=== PATIENT | female | born 1985 | race Caucasian/White ===

== ENCOUNTER 2017-07-04 05:25 | Day surgery (SDC) | payer OTHER ==
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
[2017-07-04] MEDS ORDERED: DOXYCYCLINE HYCLATE 100 MG CAP/TAB PO ONE ×2 (06:45→08:39)
[2017-07-04] MEDS ORDERED: fentaNYL 100 MCG/2 ML INJ ONE (07:10)
[2017-07-04] MEDS ORDERED: PROPOFOL/EMULSION 500 MG/50 ML BOTTLE IV ONE (07:10)
[2017-07-04] MEDS ORDERED: LIDOCAINE 2% 5 ML SDV ONE (07:11)
[2017-07-04] MEDS ORDERED: OXYTOCIN 100 UNITS/10 ML VIAL ONE (07:11)
[2017-07-04] MEDS ORDERED: DEXAMETHASONE 4 MG/ML VIAL ONE ×2 (07:11)
[2017-07-04] MEDS ORDERED: ONDANSETRON 4 MG/2 ML VIAL ONE (07:11)
[2017-07-04] MEDS ORDERED: MIDAZOLAM 2 MG/2 ML VIAL ONE (07:20)
--- NOTE | 2017-07-04 07:29 | PDANEPAE ---
ANE History of Present Illness Missed Ab. ANE Past Medical History - Cardiovascular History Hx Hypertension: No Hx Arrhythmias: No Hx Chest Pain: No Hx Coronary Artery / Peripheral Vascular Disease: No Hx CHF / Valvular Disease: No Hx Palpitations: No - Pulmonary History Hx COPD: No Hx Asthma/Reactive Airway Disease: No Hx Recent Upper Respiratory Infection: No Hx Oxygen in Use at Home: No Hx Sleep Apnea: No - Endocrine History Hx Diabetes: No - Chronic Pain History Chronic Pain: No ANE Review of Systems Review of Systems: Prior general and epidural anesthesia. ANE Patient History - Allergies Allergies/Adverse Reactions: menthol Allergy (Verified 05/30/16 17:21) - Home Medications Home Medications: Docusate Sodium [Colace 100 MG (*)] 1 cap PO PRN PRN 05/31/16 [Last Taken Unknown] Vit27&Calcium/Iron/FA [] 1 tab PO DAILY 05/31/16 [Last Taken Unknown] - Smoking Hx Smoking Status: Never smoked Marijuana use: No - Alcohol Use Alcohol Use: Rarely - Family Anes Hx Family Anes Hx: neg - N/A ANE Labs/Vital Signs - Vital Signs Height: 177.8 cm Weight: 99.79 kg ANE Physical Exam - Airway Neck exam: FROM Mallampati Score: Class 1 Mouth exam: normal dental/mouth exam - Pulmonary Pulmonary: no respiratory distress - Cardiovascular Cardiovascular: regular rate and rhythym - ASA Status ASA Status: I ANE Anesthesia Plan Anesthesia Plan: GA with mask
[2017-07-04] MEDS ORDERED: ceFAZolin 1 GM VIAL ONE ×2 (07:56)
[2017-07-04] MEDS ORDERED: GLYCOPYRROLATE 0.2 MG/1 ML VIAL ONE (08:07)
[2017-07-04] MEDS ORDERED: ONDANSETRON 4 MG/2 ML VIAL IVP PRN (08:46)
[2017-07-04] MEDS ORDERED: NALOXONE HCL 0.4 MG/ML INJ IVP PRN (08:46)
[2017-07-04] MEDS ORDERED: METOCLOPRAMIDE 10 MG/2 ML VIAL IVP PRN (08:46)
[2017-07-04] MEDS ORDERED: HYDROCODONE/APAP 5/325 TAB PO PRN (08:46)
[2017-07-04] MEDS ORDERED: ALBUTEROL 3 ML DEYVIAL IH PRN (08:46)
[2017-07-04] MEDS ORDERED: fentaNYL 100 MCG/2 ML INJ IVP PRN (08:46)
--- NOTE | 2017-07-04 08:46 | POSTOPPROG ---
Post Op Note Date of Operation: 07/04/17 Surgeon: Derrell King Straw Hat Brim Raiser Operator: OR Staff Anesthesiologist: David Tolbert MD Anesthesia: Other (Specify) (Oral Mask) Pre-op Diagnosis: Missed Post-op Diagnosis: Missed Indication: 31 yo with 8 week MAB Procedure: Suction D&C Findings: Products of conception Inf/Abcess present in the surg proc area at time of surgery?: No Depth: Organ Space EBL: 100-500 Total fluids administered: 1800 mL Complications: None
--- NOTE | 2017-07-04 08:46 | POSTANESTH ---
Post Anesthetic Evaluation Cardiovascular Status: Normal, Stable, Similar to Pre-Op Cond Respiratory Status: Normal, Stable, Similar to Pre-op Cond. Level of Consciousness/Mental Status: Can Participate in Eval, Alert and Oriented Pain Control: Adequate, Prn Tx Ordered Nausea/Vomiting Control: Adequate, Prn Tx Ordered Complications Possibly Related to Anesthesia: None Noted
--- NOTE | 2017-07-04 09:04 | SUROPNOTE ---
[facility] Operative Report - Surgery OPERATIVE REPORT DATE OF OPERATION: 07/04/2017 SURGEON: Maurisio King MD SAGGER SOAK: OR Staff ANESTHESIA: General Mask ANESTHESIOLOGIST: David Tolbert MD PREOPERATIVE DIAGNOSES: 1. 31 yo @ 11 weeks by LMP 2. Missed measuring 8 weeks gestational age on 07/01/17 US POSTOPERATIVE DIAGNOSIS: Same as above PROCEDURE PERFORMED: Suction dilation and curettage FINDINGS: 1. Anteverted 8-week sized uterus. 2. Moderate amounts of products of conception. SPECIMENS: Products of conception were collected and prepared to be sent for chromosome analysis (via the "Zkatter). EBL: 200 mL INDICATIONS: 31 yo @ 11 weeks by LMP with missed (measured 8.4 weeks) diagnosed earlier this week at [facility] consult sonogram. After counseling regarding management options (expectant management, Cytotec, and surgery), Sendy decided to proceed with suction dilation and curettage. DESCRIPTION OF PROCEDURE: The patient was taken to the operating room after she was given 100 mg of PO doxycycline. A time-out was performed. General mask anesthesia was induced and found to be adequate. Patient was placed in dorsal lithotomy position with Dada stirrups. A bimanual exam under anesthesia revealed 8-week sized anteverted uterus. Vagina and perineum were prepped and patient was draped in normal sterile fashion. Red rubber catheter was used to empty 25 mL of clear urine from bladder. A sterile weighted speculum was placed in patient's vagina and the cervix was noted to be slightly dilated with no blood or products of conception present at the os. A single tooth tenaculum was applied to the anterior lip of the cervix and used for uterine traction. The uterus was gently sounded (with dilator) to 9 cm. Dilators were used in increasing size to dilate cervix. A 10F suction curette was advance gently to the uterine fundus. The suction device was then activated to clear the uterus of the retained products of conception. A sharp curettage was then performed until a gritty texture was noted (circumferentially around endometrial cavity). The suction curette was reintroduced to clear the uterus of all remaining products of conception. A realtime bedside transabdominal sonogram was performed by myself and confirmed no obvious retained products of conception or blood clots. There was minimal bleeding noted and the tenaculum was removed with good hemostasis at tenaculum teeth sites. The patient tolerated the procedure well. The patient was taken to PACU in stable condition. Sponge, lap, and instrument counts were correct x 2.
[2017-07-04] MEDS ORDERED: METHYLERGONOVINE MAL 0.2 MG TAB PO SCH (09:15)
[2017-07-04] MEDS ORDERED: metroNIDAZOLE 500 MG TAB PO SCH (21:00)
== END 2017-07-04 10:30 | disposition home or self-care (01) ==
LOC: FOBOP 05:25
PROVIDERS: ATTEND Obstetrics & Gynecology Gynecology
PROC: 10D17ZZ Extraction of Products of Conception, Retained, Via Natural or Artificial Opening (ICD-10-PCS; principal; 2017-07-04)
DX: O02.1 Missed abortion (principal)
CPT/HCPCS: J0690; J1100; J2250; J2405; J2590; J2704; J3010

== ENCOUNTER 2018-12-04 11:53 | Observation (INO) | payer OTHER ==
[2018-12-04] MEDS: ACETAMINOPHEN 500 MG TAB PO PRN ×2 (12:58→19:18)
[2018-12-04] MEDS: ONDANSETRON DISINTEGRATING 4 MG TAB PO PRN (12:59)
--- NOTE | 2018-12-04 15:31 | GHP ---
[f rep st] HISTORY AND PHYSICAL DATE OF ADMISSION: 12/04/2018 ADMITTING DIAGNOSES: 1. Intrauterine at 37 weeks. 2. Elevated blood pressures and headache with proteinuria, rule out preeclampsia. HISTORY OF PRESENT ILLNESS: Patient is a 33-year-old, 3, para 0-1-1-1, at 37 weeks, with an estimated due date 12/25/2018 by LMP, 03/20/2018, and consistent with ultrasound at 6 weeks 3 days. Patient was seen in the office yesterday by Dr. Manjarrez with elevated blood pressure, 136/88, and complaints of headaches and worsening swelling. PIH labs were normal and P:C was elevated at 1.3 from 0.8 a week ago. Patient was told to monitor blood pressures with her home cuff and to call with blood pressures greater than 140 over 90 and worsening symptoms. Patient was told to followup in our office for NST, EDIN check, and a blood pressure check on Friday, December 07. Patient called our office today with complaints of an elevated blood pressure of 140/88, a headache , and new-onset right upper quadrant pain. Patient was sent over to Labor and Delivery for evaluation. Patient states headache started down the back of her neck and now is all over her her head and feels like a migraine that she gets. She did not take any Tylenol or caffeine for it, in which she usually does and most of the time it helps with her migraines. She denies any visual changes at this time. She notes some nausea. Patient does endorse right upper quadrant pain , a 4/10, which is new. She is sitting in her room comfortably watching a [place] [employer] movie. Patient states good movement noted. She denies any leakage of fluid, vaginal bleeding, or any contractions. Patient has good care at [facility] and presented in her first trimester. is complicated by history of preeclampsia in which she had an induction of labor at 34 weeks and 1 day. Baseline P to C in the 1st trimester of this was 0.331. She is on a baby aspirin. Patient has an elevated BMI of 34 and had a 1-hour Glucola that was normal at 111. On 20 week ultrasound, she was noted to have a bilobed, posterior placenta previa which resolved at 28 weeks. Most recent growth ultrasound done at 34 weeks revealed an estimated weight in 86th percentile. Patient developed anemia of , and is on iron. Patient received both the flu shot as well as a Tdap during the . GBS culture is positive. PAST OB HISTORY: In May 2016, she delivered a viable female at 34 weeks and 2 days, weighing 5 pounds. She was induced secondary to preeclampsia and was on magnesium sulfate. She had a retained placenta, an avulsed cord with manual extraction and received both Hemabate and Cytotec. In June 2017, she had a missed AB at 11 weeks and 4 days and needed a D and C. GYNECOLOGIC HISTORY: Age of menarche is 14. Cycles are every 26 days for 2 to 3 days. LMP 03/20/2018. Patient has a history of abnormal Pap smear, moderate dysplasia, treated with a LEEP in 2005. Subsequent Pap smears have been negative. Patient denies a history of any exposure to STDs. CURRENT MEDICATIONS: Include [id number]-[id number] vitamins, baby aspirin, fish oil, iron. ALLERGIES: Menthol. PAST MEDICAL HISTORY: Ovarian cysts, kidney stone in 2007, pyelonephritis in 2011, migraines with aura. PAST SURGICAL HISTORY: D and C in 2016; LEEP in 2005; she has had multiple surgeries secondary to ovarian cysts; hernia repair with mesh; oral surgery x2. FAMILY HISTORY: Paternal grandfather: Colon cancer, 88. Paternal grandmother : Lymphoma, leukemia, age 60. Father: Melanoma. Maternal grandmother: Breast cancer, age 65. Paternal aunt: Bipolar. Paternal grandfather: Stroke. SOCIAL HISTORY: Patient is and lives with her and their daughter. 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 She denies any alcohol, tobacco, or illicit drug use during the . REVIEW OF SYSTEMS: Ten-point review of systems negative. Pertinent positives noted in HPI. LABS: On 12/03: H and H, 13.1 and 39.3, platelets 203. Creatinine 0.6. Uric acid 4.2. AST 31, ALT 32, LDH 399, and a P/C ratio of 1.3. Today, ALT is 25 and AST 26. PHYSICAL EXAMINATION: VITAL SIGNS: On admission, vital signs are stable. Blood pressures are 127/80, 114/72, 120/69. Patient is afebrile at 37.2. Heart rate 91, respirations 18. GENERAL: Well-nourished, well-developed female. Alert and oriented x3. No apparent distress. SKIN: Warm, dry, without rash. NEURO: Grossly intact. CARDIOVASCULAR: Regular rate and rhythm. LUNGS: Clear to auscultation bilaterally. ABDOMEN: Gravid, soft, nontender, mild tenderness to palpation under right breast and ribs. EXTREMITIES: Bilateral lower extremity swelling with pitting, pedal edema. No clonus. Normal DTRs. PELVIC: Deferred. heart tones: Category 1 strip with baseline 150 beats per minute. Positive accelerations. No decelerations. Moderate variability. On toco, there are occasional contractions. ASSESSMENT AND PLAN: Patient is a 33-year-old, 3, para 0-1-1-1, at 37 weeks, with a history of preeclampsia, with elevated blood pressures at home, headache, RUQ pain and proteinuria. 1. Admit to Labor and Delivery for observation. 2. Serial blood pressures thus far have been all in normal-range, with the highest recording of 130/80. Will continue to monitor blood pressures over the next 4 hours 3. Patient was given ES Tylenol and caffeine for her headache which helped. Patient was given Zofran for her nausea with relief. 4. Repeat AST/ALT was done secondary to the new-onset right upper quadrant pain and came back normal and not elevated. Other PIH labs not repeated since normal yesterday 12/03. 5. Had a long discussion with patient regarding her history, current symptoms and her normal blood pressures on the deck; discussed that she does not meet criteria for a diagnosis of pre- eclampsia at this time and that I do not recommend an induction of labor now. Discussed there is no need for administration of steroids for lung maturity since she is at 37 weeks gestation today. 6. If blood pressures remain stable over the next 4-hours, plan to discharge patient home with close follow-up. 7. Recommend she continue to monitor blood pressures at home with her cuff, which was checked here on L&D and calibrated, Recommend she continue to monitor for worsening symptoms of PIH. She is to keep her appointment on 12/07/18 at [facility]. /[id number]/MODL MTDD
--- NOTE | 2018-12-04 17:04 | OBPROG ---
Labor Progress Note Assessment/Plan: Assessment: 33 y/o @ 37 weeks with h/o preeclampsia with elevated BPs at home and PIH symptoms that have not resolved Plan: Plan to keep pt and observe on L&D overnight since no resolution in her symptoms Will monitor BPs hourly at this time since last BP was 103/59; they remain in normal-range NSTs q shift Continue Tylenol as needed for JACKSON and Zofran as needed for nausea 12/04/18 17:05 Subjective/Intrapartum Course: 12/04/18 17:04 Pt states JACKSON is now 5/10 and she is having "floaters." She also feels nauseated. Objective: AST 26 IU/L (14-46) 12/04/18 14:40 ALT 25 IU/L (9-52) 12/04/18 14:40 Oxytocin Orders Assessment - Pre-Induction/Augmentation Assessment Gestational Age: 37 week(s) and 0 day(s) ICD10 Worksheet Patient Problems: Problems Problem Status Onset Elevated blood pressure affecting in third trimester, antepartum Acute Proteinuria affecting in third trimester Acute
[2018-12-04] MEDS ORDERED: DOCUSATE SODIUM 100 MG CAP PO PRN (20:09)
[2018-12-04] MEDS ORDERED: ZOLPIDEM TARTRATE 5 MG TAB PO PRN (20:21)
[2018-12-04] MEDS ORDERED: PRENATAL VIT 1 EACH TAB PO SCH (21:00)
[2018-12-05] MEDS: ACETAMINOPHEN 500 MG TAB PO PRN ×2 (03:46→11:57)
[2018-12-05] MEDS: ONDANSETRON DISINTEGRATING 4 MG TAB PO PRN (03:46)
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
[2018-12-05] MEDS ORDERED: FAMOTIDINE 20 MG TAB PO PRN (11:35)
== END 2018-12-05 12:15 | disposition home or self-care (01) ==
LOC: FLD 11:53
PROVIDERS: ADMIT Obstetrics & Gynecology; ATTEND Obstetrics & Gynecology
DX: O13.3 Gestational [pregnancy-induced] hypertension without significant proteinuria, third trimester (principal); O12.13 Gestational proteinuria, third trimester; O99.89 Other specified diseases and conditions complicating pregnancy, childbirth and the puerperium; R51 Headache; Z3A.37 37 weeks gestation of pregnancy
CPT/HCPCS: 59025; 76815; G0378

== ENCOUNTER 2018-12-09 19:50 | Observation (INO) | payer OTHER ==
[2018-12-09 20:33] LABS: PLATELET COUNT 201 10^3/uL (150-400)
--- NOTE | 2018-12-09 20:41 | PDGENHP ---
History and Physical - Chief Complaint eval for preeclampsia - History of Present Illness Date of admission: 12/09/18 Admitting diagnosis: 1) intrauterine at 37w5d 2) elevated blood pressures at home, with known proteinuria, rule out preeclampsia HPI: 33 yo at 37w5d by LMP c/w US at 6w3d, called in with elevated BPs at home: 134/88, repeat 135/94. "I just feel off." She has difficulty being more specific. Pt with a mild headache at home, decreased some with Tylenol but still present, over entire head, nonfocal. Good FM, no VB, no LOF. Some floaters intermittently in her vision. No epigastric or RUQ pain. Good FM. No LOF. No contractions. Some nausea earlier, but ate dinner prior to coming in. Pt with a hx of preeclampsia - induced at 34w1d, delivered at 34w2d, for preeclampsia with severe features. Pt with a lot of anxiety about prior prolonged induction. care with [facility], with baseline p/c in first trimester of 0.331. About 2 wk ago, p/c increased to 0.8, and 12/03 it was 1.34 when she was evaluated overnight in L&D to r/o preeclampsia. All other labs at that time were normal. Taking a baby asa daily. Growth US at 34 weeks: 86th %ile. Received both flu and Tdap vacc during this . Preg o/w c/b: - bilobed placenta (had posterior previa which resolved by 28 wk US) - anemia of preg - is currently on iron - GBS pos culture - BMI 34 labs: O pos Rub Imm GBS pos Innatal neg HBsAg neg HIV neg Std panel neg 2016 1 hr GTT = 111 UDS neg GC/Chl neg Varicella and Parvo Imm POb: 05/2016: female at 34w2d, 5 lb, induced for preeclampsia with severe features , was on Mag sulfate. C/b retained placenta, avulsed cord with manual extraction and received both Hemabate and misoprostil. 06/2017: MAB at 11w4d - had a D&C History Information - Allergies/Home Medication List Allergies/Adverse Reactions: menthol Allergy (Verified 05/30/16 17:21) Home Medications: Vit27&Calcium/Iron/FA [] 1 tab PO DAILY 05/31/16 [Last Taken 19:30] Aspirin 81mg (*) 1 tab PO DAILY 12/04/18 [Last Taken 12/03/18 19:30] Docosahexanoic Acid/Epa [Fish Oil Concentrate Softgel] 1 each PO DAILY 12/04/18 [Last Taken 12/03/18 19:30] I have personally reviewed and updated: family history, medical history, social history, surgical history - Past Medical History Additional medical history: nephrolithiasis 2007. pyelonephritis 2011. migraines with aura - Surgical History Reports: hernia repair Additional surgical history: 2017 D&C for 11w4d MAB. 2006 LEEP. multiple abdominal surgeries secondary to ovarian cysts. ventral hernia repair with mesh. oral surgery x 2 - Family History Positive for: cancer (PGF, colon ca at 88. PGM, leukemia lymphoma at 60. Father , melanoma. MGM, breast ca at 65. ), stroke (PGF) Additional family history: Paunt - BPAD - Social History Smoking Status: Never smoked Alcohol Use: None Drug Use: None Additional social history: , lives with and daughter. 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 Review of Systems Review of Systems: ROS: 10pt was reviewed & negative except for what was stated in HPI & below Physical Exam Physical Exam: FHR : 130 reactive, Cat 1, mod variability, no decels toco: rare contraction BPs: 126/82 125/79 119/76 117/74 119/75 114/72 118/76 from [id number] 36.2 86 HR 18 RR Constitutional: no apparent distress (pt a little tearful as she feels crazy because this is her second "false alarm") Eyes: PERRL, anicteric sclera, EOMI Ears, Nose, Mouth, Throat: moist mucous membranes, hearing normal, ears appear normal Cardiovascular: regular rate and rhythym Respiratory: no respiratory distress, no rales or rhonchi, clear to auscultation Gastrointestinal: normoactive bowel sounds, soft, non-tender abdomen, other ( term gravid, nontender, no rebound or guarding) Genitourinary: no bladder fullness Skin: warm, normal color Musculoskeletal: full muscle strength, other (trace bilateral pedal / ankle edema) Neurologic: AAOx3, other (1+ BLE DTRs, no clonus) Psychiatric: interacting appropriately, anxious Lymph, Heme, Immunologic: no cervical LAD Lab Data & Imaging Review 12/09/18 20:28 12/09/18 20:28 Assessment & Plan Assessment: 33 at 37w5d with normal BPs and normal preeclampsia labs here and known proteinuria. Elevated BPs at home (has had cuff checked). Reassurance provided - does not meet criteria for preeclampsia. High anxiety understandable based upon prior experience with 34w1d IOL for preeclampsia with severe features. Reviewed I cannot explain mild headache and intermittent floaters in her vision , but with normal BPs here, does not appear to be preeclampsia. Will dc home and will keep appointment in the office tomorrow morning with Dr. Pinto and an NST. Encouraged to call and come back if anything changes. Also encouraged to try to get some sleep as that can often decrease anxiety. Hyun Manjarrez MD, FACOG [facility]
== END 2018-12-09 21:35 | disposition home or self-care (01) ==
LOC: FLD 19:50
PROVIDERS: ADMIT Hospitalist; ATTEND Hospitalist
DX: O13.3 Gestational [pregnancy-induced] hypertension without significant proteinuria, third trimester (principal); O12.13 Gestational proteinuria, third trimester; O99.89 Other specified diseases and conditions complicating pregnancy, childbirth and the puerperium; R51 Headache; Z3A.37 37 weeks gestation of pregnancy
CPT/HCPCS: 59025; G0378

== ENCOUNTER 2018-12-14 08:50 | Observation (INO) | payer OTHER | END 2018-12-14 11:00 | disposition home or self-care (01) | LOC: FLD 08:50 | PROVIDERS: ADMIT Obstetrics & Gynecology; ATTEND Obstetrics & Gynecology | DX: Z03.79 Encounter for other suspected maternal and fetal conditions ruled out (principal) | CPT/HCPCS: 59025; 76818; G0378 ==

== ENCOUNTER 2018-12-18 07:00 | Inpatient (IN) | payer OTHER ==
--- NOTE | 2018-12-18 07:57 | PDGENHP ---
History and Physical - Chief Complaint induction - History of Present Illness Date of admission: 12/18/18 Admitting diagnosis: 1) intrauterine at 39w0d 2) known proteinuria and intermittently high BPs, though does not meet criteria for preeclampsia HPI: 33 yo at 39w0d by LMP c/w US at 6w3d, here for IOL, with concern for impending preeclampsia. Currently no JACKSON, no vis changes, no epigastric pain. Good FM, no VB, no LOF. Some floaters intermittently in her vision. Good FM. No LOF. No contractions. Ate a light breakfast this morning. Pt with a hx of preeclampsia - induced at 34w2d, for preeclampsia with severe features. Pt with a lot of anxiety about prior prolonged induction. Induction started at 0600 and baby was born a 2200, but pt had been on Magsulfate for 2 d prior to induction being started. care with [facility], with baseline p/c in first trimester of 0.331. About 2 wk ago, p/c increased to 0.8, and 12/03 it was 1.34 when she was evaluated overnight in L&D to r/o preeclampsia. All other labs at that time were normal. Taking a baby asa daily. Growth US at 34 weeks: 86th %ile. Received both flu and Tdap vacc during this . Preg o/w c/b: - bilobed placenta (had posterior previa which resolved by 28 wk US) - anemia of preg - is currently on iron - GBS pos culture - BMI 34 labs: O pos Rub Imm GBS pos Innatal neg HBsAg neg HIV neg Std panel neg 2016 1 hr GTT = 111 UDS neg GC/Chl neg Varicella and Parvo Imm POb: 05/2016: female at 34w2d, 5 lb, induced for preeclampsia with severe features , was on Mag sulfate. C/b retained placenta, avulsed cord with manual extraction and received both Hemabate and misoprostil. 06/2017: MAB at 11w4d - had a D&C History Information - Allergies/Home Medication List Allergies/Adverse Reactions: menthol Allergy (Verified 05/30/16 17:21) Home Medications: Vit27&Calcium/Iron/FA [] 1 tab PO DAILY 05/31/16 [Last Taken 19:30] Aspirin 81mg (*) 1 tab PO DAILY 12/04/18 [Last Taken 12/03/18 19:30] Docosahexanoic Acid/Epa [Fish Oil Concentrate Softgel] 1 each PO DAILY 12/04/18 [Last Taken 12/03/18 19:30] I have personally reviewed and updated: family history, medical history, social history, surgical history - Past Medical History Additional medical history: nephrolithiasis 2007. pyelonephritis 2011. migraines with aura - Surgical History Reports: hernia repair Additional surgical history: 2017 D&C for 11w4d MAB. 2006 LEEP. multiple abdominal surgeries secondary to ovarian cysts. ventral hernia repair with mesh. oral surgery x 2 - Family History Positive for: cancer (PGF, colon ca at 88. PGM, leukemia lymphoma at 60. Father , melanoma. MGM, breast ca at 65. ), stroke (PGF) Additional family history: Paunt - BPAD - Social History Smoking Status: Never smoked Alcohol Use: None Drug Use: None Additional social history: , lives with and daughter. 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 Review of Systems Review of Systems: ROS: 10pt was reviewed & negative except for what was stated in HPI & below Physical Exam Physical Exam: Verbal consent obtained - to place transcervical balloon catheter to aid in induction. With sterile gloves, was able to insert Cook transcervical balloon catheter with a stylet. 60 ml in uterine balloon and 20 ml in cervical balloon. Pt tolerated procedure well. 36.9 85 121/78 FHR 135 reactive, Cat 1, mod variability, no decels Constitutional: no apparent distress, appears nourished Eyes: PERRL, anicteric sclera, EOMI Ears, Nose, Mouth, Throat: moist mucous membranes, hearing normal, ears appear normal Cardiovascular: regular rate and rhythym Respiratory: no respiratory distress, no rales or rhonchi, clear to auscultation Gastrointestinal: other (gravid, term. US - confirms cephalic presentation, currently appears FARAZ) Genitourinary: no bladder fullness, other (SVE 2 / 50 / very high) Skin: warm, normal color Musculoskeletal: full muscle strength, no muscle tenderness Neurologic: AAOx3, sensation intact bilaterally Psychiatric: interacting appropriately, not anxious Lab Data & Imaging Review 12/18/18 07:45 12/18/18 07:45 Assessment & Plan Assessment: Assessment: 33 at 39 wk with intermittently high BPs and an increase from baseline of proteinuria over the past 3 weeks. Concern for impending preeclampsia. Also high anxiety level - desires induction. GBS POSITIVE Normal preeclamptic labs. P/C not repeated. Plan: Transcervical balloon catheter placed for cervical ripening, and will also start pitocin. US confirmed cephalic presentation. STart PCN for GBS +. B/R/A of pitocin discussed with patient and , including increased risk of C/S and fluid overload, but I feel benefits outweigh risks at this point. EFW 8lb Hyun Manjarrez MD, [facility]
[2018-12-18] MEDS ORDERED: OXYTOCIN/RINGERS LACTATE 1,000 ML IV PRN (08:12)
[2018-12-18] MEDS ORDERED: MISOPROSTOL 200 MCG TAB PR PRN (08:12)
[2018-12-18] MEDS ORDERED: LIDOCAINE 1% 300 MG/30 ML SDV SC PRN (08:12)
[2018-12-18] MEDS ORDERED: IBUPROFEN 600 MG TAB PO PRN (08:12)
[2018-12-18] MEDS ORDERED: PENICILLIN G POTASSIUM 5,000,000 UNIT in D5W 150 ML IV ONE (08:12)
[2018-12-18] MEDS ORDERED: OLIVE OIL 118 ML BTL MISC PRN (08:12)
[2018-12-18] MEDS ORDERED: LR 1,000 ML IV PRN (08:12)
[2018-12-18] MEDS ORDERED: EPSOM SALT 454 GM TP PRN (08:12)
[2018-12-18 08:47] LABS: PLATELET COUNT 215 10^3/uL (150-400)
[2018-12-18] MEDS ORDERED: LR 500 ML IV PRN (09:12)
[2018-12-18] MEDS ORDERED: MISOPROSTOL 200 MCG TAB ONE (09:23)
[2018-12-18] MEDS ORDERED: OXYTOCIN 10 UNIT/ML VIAL ONE (09:23)
[2018-12-18] MEDS ORDERED: TERBUTALINE SULFATE 1 MG/ML VIAL ONE (09:23)
[2018-12-18] MEDS ORDERED: AMMONIA AROMATIC 1 EACH AMP IH ONE (09:23)
[2018-12-18] MEDS ORDERED: LIDOCAINE 1% 300 MG/30 ML SDV ONE (09:23)
[2018-12-18] MEDS ORDERED: OLIVE OIL 118 ML BTL MISC ONE (09:23)
[2018-12-18] MEDS ORDERED: OXYTOCIN/RINGERS LACTATE 500 ML IV SCH (09:30)
[2018-12-18] MEDS: PENICILLIN G POTASSIUM 2,500,000 UNIT in D5W 150 ML IV SCH ×2 (13:39→17:28)
--- NOTE | 2018-12-18 14:31 | OBPROG ---
Labor Progress Note Assessment/Plan: Assessment: 33 at 39w0d undergoing induction for concern of impending preeclampsia with underlying proteinuria and labile BPs- though stable here today. Now 3 cm dilated after balloon catheter removed with tension. Plan: Will continue, may increase pitocin to 30miu/hr. Hyun Manjarrez MD, FACOG 12/18/18 14:26 Subjective/Intrapartum Course: Pt doing well. Not uncomfortable with contractions. 12/18/18 14:31 Objective: 12/18/18 07:45 12/18/18 07:45 Patient ABO/Rh O POSITIVE 12/18/18 07:45 Uric Acid 4.9 mg/dL (2.5-6.8) 12/18/18 07:45 Total Bilirubin 0.7 mg/dL (0.1-1.4) 12/18/18 07:45 Conjugated Bilirubin 0.4 mg/dL (0.0-0.5) 12/18/18 07:45 Unconjugated Bilirubin 0.3 mg/dL (0.0-1.1) 12/18/18 07:45 AST 24 IU/L (14-46) 12/18/18 07:45 ALT 24 IU/L (9-52) 12/18/18 07:45 gen - pleasant, NAD abd - gravid, soft, NT SVE - balloon catheter did not come out initially with tension. On digital exam , uterine balloon at os - with directed tension, balloon came through cervix intact. After removal - 50 / -3. - SVE Dilation (cm): 3 Effacement (%): 50 Station: -3 Membranes: Intact - Contraction Pattern Assessment Current Contraction Pattern: Regular (3-5) - FHR Assessment Peña FHR (bpm): 130 FHR Pattern Variability: Moderate FHR Category: 1 - Procedures Non-surgical Procedures: Other (Specify) (transcervical balloon catheter removed ) Oxytocin Orders Assessment - Pre-Induction/Augmentation Assessment Gestational Age: 91 week(s) and 1 day(s) ICD10 Worksheet Patient Problems: Problems Problem Status Onset Elevated blood pressure affecting in third trimester, antepartum Acute Proteinuria affecting in third trimester Acute
--- NOTE | 2018-12-18 19:37 | OBPROG ---
Labor Progress Note Assessment/Plan: Assessment: 33 at 39w0d undergoing induction for concern of impending preeclampsia with underlying proteinuria and labile BPs- though stable here today. Now 3 cm dilated after balloon catheter removed with tension. Plan: Will continue, may increase pitocin to 30miu/hr. Hyun Chiu MD, FACOG 12/18/18 14:26 A/P: 33 at 39w0d, IOL for concern about impending preeclampsia. BPs stable here. Was at max dose pitocin for over 2 hours. Will turn off pitocin, take a break and allow her to eat dinner. Will restart pitocin in 2-4 hours. Hyun Chiu MD, FACOG 12/18/18 19:35 Subjective/Intrapartum Course: Pt doing well. Not uncomfortable with contractions. 12/18/18 14:31 Feels an occasional ctxn, "like a tightness". 12/18/18 19:37 Objective: 12/18/18 07:45 12/18/18 07:45 Patient ABO/Rh O POSITIVE 12/18/18 07:45 Uric Acid 4.9 mg/dL (2.5-6.8) 12/18/18 07:45 Total Bilirubin 0.7 mg/dL (0.1-1.4) 12/18/18 07:45 Conjugated Bilirubin 0.4 mg/dL (0.0-0.5) 12/18/18 07:45 Unconjugated Bilirubin 0.3 mg/dL (0.0-1.1) 12/18/18 07:45 AST 24 IU/L (14-46) 12/18/18 07:45 ALT 24 IU/L (9-52) 12/18/18 07:45 36.9 18 69 127/69 SVE / -3, intact with BBOW - SVE Dilation (cm): 3 Effacement (%): 75 Station: -3 Membranes: Intact - Contraction Pattern Assessment Current Contraction Pattern: Regular (3-5) - FHR Assessment Peña FHR (bpm): 130 (occasional variable decel) FHR Pattern Variability: Moderate FHR Category: 1 - Procedures Non-surgical Procedures: Other (Specify) (transcervical balloon catheter removed ) Oxytocin Orders Assessment - Pre-Induction/Augmentation Assessment Gestational Age: 91 week(s) and 1 day(s) ICD10 Worksheet Patient Problems: Problems Problem Status Onset Elevated blood pressure affecting in third trimester, antepartum Acute Proteinuria affecting in third trimester Acute
[2018-12-19] MEDS: PENICILLIN G POTASSIUM 2,500,000 UNIT in D5W 150 ML IV SCH ×6 (00:31→14:15)
--- NOTE | 2018-12-19 02:19 | OBPROG ---
Labor Progress Note Assessment/Plan: Assessment: 33 at 39w0d undergoing induction for concern of impending preeclampsia with underlying proteinuria and labile BPs- though stable here today. Now 3 cm dilated after balloon catheter removed with tension. Plan: Will continue, may increase pitocin to 30miu/hr. Hyun Chiu MD, FACOG 12/18/18 14:26 A/P: 33 at 39w0d, IOL for concern about impending preeclampsia. BPs stable here. Was at max dose pitocin for over 2 hours. Will turn off pitocin, take a break and allow her to eat dinner. Will restart pitocin in 2-4 hours. Hyun Chiu MD, FACOG 12/18/18 19:35 A/P: 33 at 39w1d, IOL for concern about impending preeclampsia. Stable labs and BPs here. Will resume pitocin induction and PCN for GBS positive. Hyun Chiu MD, FACOG 12/19/18 02:51 Subjective/Intrapartum Course: Pt doing well. Not uncomfortable with contractions. 12/18/18 14:31 Feels an occasional ctxn, "like a tightness". 12/18/18 19:37 Pt comfortable. Was able to eat and sleep for a couple hours. Not feeling any contractions. No ssx preeclampsia. 12/19/18 02:52 Objective: 12/18/18 07:45 12/18/18 07:45 Patient ABO/Rh O POSITIVE 12/18/18 07:45 Uric Acid 4.9 mg/dL (2.5-6.8) 12/18/18 07:45 Total Bilirubin 0.7 mg/dL (0.1-1.4) 12/18/18 07:45 Conjugated Bilirubin 0.4 mg/dL (0.0-0.5) 12/18/18 07:45 Unconjugated Bilirubin 0.3 mg/dL (0.0-1.1) 12/18/18 07:45 AST 24 IU/L (14-46) 12/18/18 07:45 ALT 24 IU/L (9-52) 12/18/18 07:45 gen - pleasant, NAD, restin comfortably - SVE Membranes: Intact - Contraction Pattern Assessment Current Contraction Pattern: Irregular - FHR Assessment Peña FHR (bpm): 125 FHR Pattern Variability: Moderate FHR Category: 1 - Procedures Non-surgical Procedures: Other (Specify) (transcervical balloon catheter removed ) - AP Antepartum Course: Pt with intermittently high BPs since 36 weeks, and proteinuria which increased from baseline 0.3 to 1.3 at 37 weeks. 12/19/18 02:56 Oxytocin Orders Assessment - Pre-Induction/Augmentation Assessment Gestational Age: 91 week(s) and 1 day(s) ICD10 Worksheet Patient Problems: Problems Problem Status Onset Elevated blood pressure affecting in third trimester, antepartum Acute Proteinuria affecting in third trimester Acute
--- NOTE | 2018-12-19 09:44 | OBPROG ---
Labor Progress Note Assessment/Plan: Assessment: IUP at 39 wks elective IOL, h/o preeclampsia with first baby GBS +, had 2 doses PCN yesterday and about to rec. second dose today bilobed placenta h/o retained placenta with difficult removal and PTSD over effect Plan: on pitocin, up to 24 mu/min, AROM with clear fluid 12/19/18 09:39 Subjective/Intrapartum Course: Pt doing well. Not uncomfortable with contractions. 12/18/18 14:31 Feels an occasional ctxn, "like a tightness". 12/18/18 19:37 Pt comfortable. Was able to eat and sleep for a couple hours. Not feeling any contractions. No ssx preeclampsia. 12/19/18 02:52 12/19/18 09:44 pt not feeling anything - bored. disc doing exam and offered AROM - pt desires. cx 4/80/-2, AROM with clear fluid. on pit at 24 Objective: 12/18/18 07:45 12/18/18 07:45 Patient ABO/Rh O POSITIVE 12/18/18 07:45 Uric Acid 4.9 mg/dL (2.5-6.8) 12/18/18 07:45 Total Bilirubin 0.7 mg/dL (0.1-1.4) 12/18/18 07:45 Conjugated Bilirubin 0.4 mg/dL (0.0-0.5) 12/18/18 07:45 Unconjugated Bilirubin 0.3 mg/dL (0.0-1.1) 12/18/18 07:45 AST 24 IU/L (14-46) 12/18/18 07:45 ALT 24 IU/L (9-52) 12/18/18 07:45 - SVE Dilation (cm): 4 Effacement (%): 80 Station: -2 Membranes: AROM, Intact Amniotic Fluid Color: Clear - Contraction Pattern Assessment Current Contraction Pattern: Irregular (on 24 mu/min - not feeling any) - FHR Assessment Peña FHR (bpm): 130 FHR Pattern Variability: Moderate FHR Category: 1 - Procedures Non-surgical Procedures: Amniotomy (09:32), Other (Specify) (transcervical balloon catheter removed) - AP Antepartum Course: Pt with intermittently high BPs since 36 weeks, and proteinuria which increased from baseline 0.3 to 1.3 at 37 weeks. 12/19/18 02:56 Oxytocin Orders Assessment - Pre-Induction/Augmentation Assessment Gestational Age: 91 week(s) and 1 day(s) ICD10 Worksheet Patient Problems: Problems Problem Status Onset Encounter for induction of labor Acute Elevated blood pressure affecting in third trimester, antepartum Acute Proteinuria affecting in third trimester Acute
[2018-12-19] MEDS ORDERED: PHENYLEPHRINE HCL 100 MCG/ML SYR ONE (10:30)
[2018-12-19] MEDS ORDERED: ONDANSETRON 4 MG/2 ML VIAL IVP PRN (10:33)
[2018-12-19] MEDS ORDERED: PHENYLEPHRINE HCL 100 MCG/ML SYR IVP PRN (10:33)
--- NOTE | 2018-12-19 10:35 | PREANESOB ---
Obstetric Pre-Anesthesia Info - General Info Proposed Procedure: labor epidural : 3 Para: 1 PREMA: 12/25/17 Gestational Age: 91 week(s) and 1 day(s) - Info Status: Full Term FHR Pattern: Reassuring - Labor Status Cervical Dilation per last OB SVE: 4 Station per last OB SVE: -2 Amniotic Fluid Color: Clear Indications for Labor Analgesia: Augmentation of Labor, Pain Control Labor Epidural: Proposed Anesthesia Allergies/Adverse Reactions: Allergy/AdvReac Type Severity Reaction Status Date / Time menthol Allergy Verified 05/30/16 17:21 Home Medications: Medication Instructions Recorded Vit27&Calcium/Iron/FA 1 tab PO DAILY 05/31/16 [] Docusate Sodium [Colace 100 MG (*)] 100 mg PO BID PRN #0 cap 06/05/16 Iron Polysacch/Iron Heme Polyp 28 mg PO BID #0 tab 06/05/16 [Bifera] Acetaminophen [Tylenol ES 500 mg 1,000 mg PO Q6HRS PRN tab 12/04/18 (*)] Aspirin 81mg (*) 1 tab PO DAILY 12/04/18 Docosahexanoic Acid/Epa [Fish Oil 1 each PO DAILY 12/04/18 Concentrate Softgel] Visit Medications: Generic Name Dose Route Start Last Admin Trade Name Freq PRN Reason Stop Dose Admin Oxytocin/Lactated Ringer's 1,000 mls @ 125 mls/hr 12/18/18 08:12 Pitocin 20 Units/Lr (Premix) IV PRN PRN Post bleeding Oxytocin/Lactated Ringer's 500 mls @ 0 mls/hr 12/18/18 09:30 12/18/18 09:28 Pitocin 30 Units/Lr (Premix) IV 06/16/19 09:29 500 mls CONT SIRI Administration Protocol Per Protocol Penicillin G Potassium 2,500, 155 mls @ 155 mls/hr 12/19/18 02:30 12/19/18 10 :02 000 unit/ Dextrose IV 01/18/19 02:29 155 mls Q4H SIRI Administration Protocol Ibuprofen 600 mg 12/18/18 08:12 Motrin PO ONCE PRN post , pain Lidocaine HCl 300 mg 12/18/18 08:12 Lidocaine Hcl 1% SC 06/16/19 08:11 ONCE PRN episiotomy Magnesium Sulfate 454 gm 12/18/18 08:12 Epsom Salt TP 06/16/19 08:11 Q1H PRN perineal discomfort Misoprostol 800 - 1,000 mcg 12/18/18 08:12 Cytotec [place] ONCE PRN Vaginal Atony/Bleeding [place] Oil 118 ml 12/18/18 08:12 Sweet Oil MISC 06/16/19 08:11 ONCE PRN perineal massage Discontinued Medications Generic Name Dose Route Start Last Admin Trade Name Anastacia PRN Reason Stop Dose Admin Ammonia (Aromatic Spirit) Confirm 12/18/18 09:23 Ammonia Aromatic Administered 12/18/18 09:24 Dose 1 each IH .STK-MED ONE Lactated Ringer's 1,000 mls @ 0 mls/hr 12/18/18 08:12 Lr IV 12/19/18 08:11 PRN PRN SEE PROTOCOL CONDITIONS Protocol Per Protocol Penicillin G Potassium 5,000, 160 mls @ 160 mls/hr 12/18/18 08:12 12/18/18 09 :28 000 unit/ Dextrose IV 12/18/18 09:11 160 mls ONCE ONE Administration Protocol Penicillin G Potassium 2,500, 155 mls @ 155 mls/hr 12/18/18 12:14 12/19/18 03 :45 000 unit/ Dextrose IV 01/17/19 12:13 Not Given Q4H SIRI Protocol Lactated Ringer's 500 mls @ 500 mls/hr 12/18/18 09:12 Lr IV 12/19/18 09:12 PRN PRN Maternal Hypotension Lidocaine HCl Confirm 12/18/18 09:23 Lidocaine Hcl 1% Administered 12/18/18 09:24 Dose 300 mg .ROUTE .STK-MED ONE Misoprostol Confirm 12/18/18 09:23 Cytotec Administered 12/18/18 09:24 Dose 1,000 mcg .ROUTE .STK-MED ONE [place] Oil Confirm 12/18/18 09:23 Sweet Oil Administered 12/18/18 09:24 Dose 118 ml MISC .STK-MED ONE Oxytocin Confirm 12/18/18 09:23 Pitocin Administered 12/18/18 09:24 Dose 40 unit .ROUTE .STK-MED ONE Phenylephrine HCl Confirm 12/19/18 10:30 Neosynephrine Administered 12/19/18 10:31 Dose 1,000 mcg .ROUTE .STK-MED ONE Terbutaline Sulfate Confirm 12/18/18 09:23 Brethine Administered 12/18/18 09:24 Dose 1 mg .ROUTE .STK-MED ONE - Vital Signs Height/Weight (Nursing): Height 177.8 cm Weight 112.491 kg - Focused Exam Neck exam: FROM Mallampati Score: Class 2 Mouth exam: normal dental/mouth exam Pulmonary: no respiratory distress, clear to auscultation Cardiovascular: regular rate and rhythym, no murmur, rub, or gallop Labs: 12/18/18 07:45 12/18/18 07:45 Patient ABO/Rh O POSITIVE 12/18/18 07:45 Uric Acid 4.9 mg/dL (2.5-6.8) 12/18/18 07:45 Total Bilirubin 0.7 mg/dL (0.1-1.4) 12/18/18 07:45 Conjugated Bilirubin 0.4 mg/dL (0.0-0.5) 12/18/18 07:45 Unconjugated Bilirubin 0.3 mg/dL (0.0-1.1) 12/18/18 07:45 AST 24 IU/L (14-46) 12/18/18 07:45 ALT 24 IU/L (9-52) 12/18/18 07:45 - Plan Consent Signed and on Chart: Yes Patient/Guardian Understands and Agrees to Plan: Yes
[2018-12-19] MEDS ORDERED: fentaNYL 2MCG/ML/BUP 0.1% RTU 100 ML EP SCH (11:00)
[2018-12-19] MEDS ORDERED: fentaNYL 200 MCG, BUPIVACAINE 0.5% 20 ML in NS 100 ML EP SCH (11:00)
[2018-12-19] MEDS ORDERED: LR 500 ML IV SCH (11:00)
--- NOTE | 2018-12-19 13:27 | OBPROG ---
Labor Progress Note Assessment/Plan: Assessment: IUP at 39 wks elective IOL, h/o preeclampsia with first baby GBS +, has had 2 doses today bilobed placenta h/o retained placenta with difficult removal and PTSD from delivery Plan: great response after AROM - strong change of ctxns and pit decreased to 12, pt got ARIELA, pit now increasing again up to 18, cx now 6/100/0 12/19/18 09:39 12/19/18 13:24 Subjective/Intrapartum Course: Pt doing well. Not uncomfortable with contractions. 12/18/18 14:31 Feels an occasional ctxn, "like a tightness". 12/18/18 19:37 Pt comfortable. Was able to eat and sleep for a couple hours. Not feeling any contractions. No ssx preeclampsia. 12/19/18 02:52 12/19/18 09:44 pt not feeling anything - bored. disc doing exam and offered AROM - pt desires. cx 4/80/-2, AROM with clear fluid. on pit at 24 12/19/18 13:26 pt so excited to have had AROM stim increase ctxns -now comf with ARIELA. so happy with cx change to 6/100/0. on pit of 18 Objective: 12/18/18 07:45 12/18/18 07:45 Patient ABO/Rh O POSITIVE 12/18/18 07:45 Uric Acid 4.9 mg/dL (2.5-6.8) 12/18/18 07:45 Total Bilirubin 0.7 mg/dL (0.1-1.4) 12/18/18 07:45 Conjugated Bilirubin 0.4 mg/dL (0.0-0.5) 12/18/18 07:45 Unconjugated Bilirubin 0.3 mg/dL (0.0-1.1) 12/18/18 07:45 AST 24 IU/L (14-46) 12/18/18 07:45 ALT 24 IU/L (9-52) 12/18/18 07:45 - SVE Dilation (cm): 6 Effacement (%): 100 Station: 0 Membranes: AROM Amniotic Fluid Color: Clear - Contraction Pattern Assessment Current Contraction Pattern: Regular (q 2-3 min on 18 mu/min pit), Irregular ( on 24 mu/min - not feeling any) - FHR Assessment Peña FHR (bpm): 130 FHR Pattern Variability: Moderate FHR Category: 1 (early decels with ctxns) - Procedures Non-surgical Procedures: Amniotomy (09:32), Other (Specify) (transcervical balloon catheter removed) - AP Antepartum Course: Pt with intermittently high BPs since 36 weeks, and proteinuria which increased from baseline 0.3 to 1.3 at 37 weeks. 12/19/18 02:56 Oxytocin Orders Assessment - Pre-Induction/Augmentation Assessment Gestational Age: 91 week(s) and 1 day(s) ICD10 Worksheet Patient Problems: Problems Problem Status Onset Encounter for induction of labor Acute Elevated blood pressure affecting in third trimester, antepartum Acute Proteinuria affecting in third trimester Acute
--- NOTE | 2018-12-19 17:03 | OBDEL ---
Info Type: Vaginal Presentation at Delivery: Vertex L&D Analgesia/Anesthesia Type: Epidural GBS+: Yes Antibiotic Used for + GBS: Ampicillin (PCN) Intrapartum Medications: Generic Name Dose Route Start Last Admin Trade Name Frebear PRN Reason Stop Dose Admin Oxytocin/Lactated Ringer's 500 mls @ 0 mls/hr 12/18/18 09:30 12/18/18 09:28 Pitocin 30 Units/Lr (Premix) IV 06/16/19 09:29 500 mls CONT SIRI Administration Protocol Per Protocol Penicillin G Potassium 2,500, 155 mls @ 155 mls/hr 12/19/18 02:30 12/19/18 14 :15 000 unit/ Dextrose IV 01/18/19 02:29 155 mls Q4H [facility] Administration Protocol Discontinued Medications Generic Name Dose Route Start Last Admin Trade Name Frebear PRN Reason Stop Dose Admin Penicillin G Potassium 5,000, 160 mls @ 160 mls/hr 12/18/18 08:12 12/18/18 09 :28 000 unit/ Dextrose IV 12/18/18 09:11 160 mls ONCE ONE Administration Protocol Penicillin G Potassium 2,500, 155 mls @ 155 mls/hr 12/18/18 12:14 12/19/18 03 :45 000 unit/ Dextrose IV 01/17/19 12:13 Not Given Q4H [facility] Protocol Ibuprofen 600 mg 12/18/18 08:12 12/19/18 16:48 Motrin PO 600 mg ONCE PRN Administration post , pain - Hospital Course Intrapartum: Pt doing well. Not uncomfortable with contractions. 12/18/18 14:31 Feels an occasional ctxn, "like a tightness". 12/18/18 19:37 Pt comfortable. Was able to eat and sleep for a couple hours. Not feeling any contractions. No ssx preeclampsia. 12/19/18 02:52 12/19/18 09:44 pt not feeling anything - bored. disc doing exam and offered AROM - pt desires. cx 4/80/-2, AROM with clear fluid. on pit at 24 12/19/18 13:26 pt so excited to have had AROM stim increase ctxns -now comf with ARIELA. so happy with cx change to 6/100/0. on pit of 18 Indications for Delivery: Elective Vaginal Delivery - Delivery Provider Delivery Physician/CNM: Suzanna Pinto - Labor and Delivery Onset of Contractions Date: 12/19/18 Onset of Contractions Time: 09:45 Onset of Contractions Type: Induced Rupture of Membranes Date: 12/19/18 Rupture of Membranes Time: 09:32 Rupture of Membranes Type: Artificial Amniotic Fluid Color: Clear Dilation Complete Date: 12/19/18 Dilation Complete Time: 15:30 Placenta Delivery Date: 12/19/18 Placenta Delivery Time: 16:25 Total Hours of Labor: 6 Non-surgical Procedures: Amniotomy (09:32), Other (Specify) (transcervical balloon catheter removed) Laceration: 1st Degree (bilateral inner labial) Repair: Other (Specify) (none) Vaginal Sponge Count Correct: Yes Vaginal Needle Count Correct: Yes Vaginal Sweep Performed: Yes EBL: 400 Delivery Comment: easy delivery of placenta - intact - NOT BILOBED, no vessels off of base of placenta - u/s checked and uterine lining thin. good massage and pitocin and good tone of uterus. - Medications Labor Augmentation/Induction Methods Used: Other (Specify) (cook catheter and pit all day - no change. pit stopped and restarted on 12/19 - minimal change until AROM) Labor Augmentation/Induction Indication: Elective (hx of preeclampsia with first and labile b/p, neg labs) Data PREMA: 12/25/18 Gestational Age: 39 week(s) and 1 day(s) Peña Delivery Date: 12/19/18 Delivery Time: 16:16 Sex of : Female (Polly Woodall) Score (1 Min): 8 Score (5 Min): 9 ICD10 Worksheet Patient Problems: Problems Problem Status Onset Encounter for induction of labor Acute (spontaneous vaginal delivery) Acute Elevated blood pressure affecting in third trimester, antepartum Acute Proteinuria affecting in third trimester Acute - ICD10 Problem Qualifiers (1) (spontaneous vaginal delivery)
--- NOTE | 2018-12-19 18:52 | POSTANESTH ---
Post Anesthetic Evaluation Cardiovascular Status: Normal, Stable Respiratory Status: Normal, Stable Level of Consciousness/Mental Status: Can Participate in Eval Pain Control: Adequate, Prn Tx Ordered Nausea/Vomiting Control: Adequate, Prn Tx Ordered Complications Possibly Related to Anesthesia: None Noted
[2018-12-19] MEDS: IBUPROFEN 600 MG TAB PO PRN (23:28)
[2018-12-19] MEDS: ACETAMINOPHEN 325 MG TAB PO PRN (23:28)
[2018-12-20] MEDS: PENICILLIN G POTASSIUM 2,500,000 UNIT in D5W 150 ML IV SCH (00:12)
[2018-12-20] MEDS: ACETAMINOPHEN 325 MG TAB PO PRN ×3 (06:35→19:33)
[2018-12-20] MEDS: IBUPROFEN 600 MG TAB PO PRN ×3 (06:36→19:33)
--- NOTE | 2018-12-20 10:58 | OBPP ---
Progress Note Assessment/Plan: Assessment: 33 at 39w0d undergoing induction for concern of impending preeclampsia with underlying proteinuria and labile BPs- though stable here today. Now 3 cm dilated after balloon catheter removed with tension. Plan: Will continue, may increase pitocin to 30miu/hr. Hyun Chiu MD, FACOG 12/18/18 14:26 A/P: 33 at 39w0d, IOL for concern about impending preeclampsia. BPs stable here. Was at max dose pitocin for over 2 hours. Will turn off pitocin, take a break and allow her to eat dinner. Will restart pitocin in 2-4 hours. Hyun Chiu MD, FACOG 12/18/18 19:35 A/P: 33 at 39w1d, IOL for concern about impending preeclampsia. Stable labs and BPs here. Will resume pitocin induction and PCN for GBS positive. Hyun Chiu MD, FACOG 12/19/18 02:51 12/20/18 12:36 33 G3now P2 PPD#1 s/p after IOL for concern about impending preeclampsia. Doing well. Mild anemia - will start iron. Continue routine pp cares and anticipate dc home tomorrow. Hyun Chiu MD, FACOG Subjective/ Course: 12/20/18 12:38 Doing well. Ambulating, voiding, + flatus and mieky reg diet without difficulty. Mod bleeding/ lochia. going well. Objective: 12/20/18 05:00 12/18/18 07:45 Patient ABO/Rh O POSITIVE 12/18/18 07:45 Uric Acid 4.9 mg/dL (2.5-6.8) 12/18/18 07:45 Total Bilirubin 0.7 mg/dL (0.1-1.4) 12/18/18 07:45 Conjugated Bilirubin 0.4 mg/dL (0.0-0.5) 12/18/18 07:45 Unconjugated Bilirubin 0.3 mg/dL (0.0-1.1) 12/18/18 07:45 AST 24 IU/L (14-46) 12/18/18 07:45 ALT 24 IU/L (9-52) 12/18/18 07:45 Temp Pulse Resp BP Pulse Ox 36.1 C 73 17 120/73 96 12/20/18 10:22 12/20/18 10:22 12/20/18 10:22 12/20/18 10:22 12/20/18 10:22 gen - pleasant, NAD CV - RRR chest - CTAB abd - soft, fundus firm at umbilicus, NT, + BS peripad - appropriate amount bleeding since last pad change. Declined perineum exam (no repair indicated) ext - calves NT, 1+ pitting edema BLE Uterine Position/Fundal Height: At Umbilicus Uterine Tone: Firm
[2018-12-20] MEDS: FERRO-SEQUELS 65 MG TAB.ER PO SCH ×2 (13:02→19:33)
[2018-12-20] MEDS: HYDROCORTISONE 1% CREAM TP SCH (13:15)
[2018-12-21] MEDS: HYDROCORTISONE 1% CREAM TP SCH (01:07)
[2018-12-21] MEDS: ACETAMINOPHEN 325 MG TAB PO PRN ×2 (01:38→08:04)
[2018-12-21] MEDS: IBUPROFEN 600 MG TAB PO PRN ×2 (01:38→08:03)
[2018-12-21] MEDS: FERRO-SEQUELS 65 MG TAB.ER PO SCH (08:03)
[2018-12-21 08:45] VITALS: BP 117/65
--- NOTE | 2018-12-21 11:52 | OBPP ---
Progress Note Assessment/Plan: Assessment: 33 y/o G3 now P2 PPD#2 s/p after IOL for concern about impending preeclampsia Mild anemia - pt is asymptomatic Plan: BPs stable, pt is asymptomatic Plan for d/c home today Instructions reviewed with pt No Rx given Cont PNV, iron and colace Pelvic rest RTC in 4 and 6 weeks for pp visit 12/21/18 11:52 Subjective/ Course: 12/20/18 12:38 Doing well. Ambulating, voiding, + flatus and mikey reg diet without difficulty. Mod bleeding/ lochia. going well. 12/21/18 11:51 Pt seen and examined. Doing well with no complaints. Mild cramping. Mod lochia. Pt is OOB, mikey regular diet, voiding and passing flatus. No BM yet. BF is going well. Ready to go home today. Objective: 12/20/18 05:00 12/18/18 07:45 Patient ABO/Rh O POSITIVE 12/18/18 07:45 Uric Acid 4.9 mg/dL (2.5-6.8) 12/18/18 07:45 Total Bilirubin 0.7 mg/dL (0.1-1.4) 12/18/18 07:45 Conjugated Bilirubin 0.4 mg/dL (0.0-0.5) 12/18/18 07:45 Unconjugated Bilirubin 0.3 mg/dL (0.0-1.1) 12/18/18 07:45 AST 24 IU/L (14-46) 12/18/18 07:45 ALT 24 IU/L (9-52) 12/18/18 07:45 Temp Pulse Resp BP Pulse Ox 36.0 C 66 16 117/65 96 12/21/18 08:43 12/21/18 08:43 12/21/18 08:43 12/21/18 08:43 12/21/18 08:43 Uterine Position/Fundal Height: Umbilicus -2 Uterine Tone: Firm Physical Exam - Physical Exam General Appearance: WD/WN, alert, no apparent distress Respiratory: lungs clear, normal breath sounds Cardiac/Chest: regular rate, rhythm Abdomen: normal bowel sounds, non-tender, soft, flatus (+) Extremities: non-tender, normal inspection Skin: normal color, warm/dry Neuro/Psych: alert, normal mood/affect, oriented x 3
--- NOTE | 2018-12-21 11:53 | OBGCSDC ---
General Delivery Information - General Info : 3 Para: 1 Abortions: 1 Type: Vaginal L&D Analgesia/Anesthesia Type: Epidural Admission Date: 12/18/18 Labs: Patient ABO/Rh O POSITIVE 12/18/18 07:45 Hct 31.6 % (38.0-47.0) L 12/20/18 05:00 - Hospital Course Antepartum: Pt with intermittently high BPs since 36 weeks, and proteinuria which increased from baseline 0.3 to 1.3 at 37 weeks. 12/19/18 02:56 Intrapartum: Pt doing well. Not uncomfortable with contractions. 12/18/18 14:31 Feels an occasional ctxn, "like a tightness". 12/18/18 19:37 Pt comfortable. Was able to eat and sleep for a couple hours. Not feeling any contractions. No ssx preeclampsia. 12/19/18 02:52 12/19/18 09:44 pt not feeling anything - bored. disc doing exam and offered AROM - pt desires. cx 4/80/-2, AROM with clear fluid. on pit at 24 12/19/18 13:26 pt so excited to have had AROM stim increase ctxns -now comf with ARIELA. so happy with cx change to 6/100/0. on pit of 18 : 12/20/18 12:38 Doing well. Ambulating, voiding, + flatus and mikey reg diet without difficulty. Mod bleeding/ lochia. going well. 12/21/18 11:51 Pt seen and examined. Doing well with no complaints. Mild cramping. Mod lochia. Pt is OOB, mikey regular diet, voiding and passing flatus. No BM yet. BF is going well. Ready to go home today. Vaginal - Delivery Provider Delivery Physician/CNM: Suzanna Pinto - Diagnosis Labor: Induced Rupture of Membranes Type: Artificial Amniotic Fluid Color: Clear Laceration: 1st Degree (bilateral inner labial) Repair: Other (Specify) (none) - Procedures Non-surgical Procedures: Amniotomy (09:32), Other (Specify) (transcervical balloon catheter removed) - Delivery Non-surgical Procedures: Amniotomy (09:32), Other (Specify) (transcervical balloon catheter removed) EBL: 400 Data PREMA: 12/25/18 Gestational Age: 39 week(s) and 3 day(s) Peña Delivery Date: 12/19/18 Delivery Time: 16:16 Sex of : Female (Polly Woodall) Score (1 Min): 8 Score (5 Min): 9 Discharge Information - Discharge Information Condition: Good Instruction/Follow Up: Four Weeks, Six Weeks
== END 2018-12-21 12:00 | disposition home or self-care (01) | DRG 807 ==
LOC: FLD 07:00 → FOB 12-19 21:01
PROVIDERS: ADMIT Hospitalist; ATTEND Hospitalist
PROC: 0U7C7ZZ Dilation of Cervix, Via Natural or Artificial Opening (ICD-10-PCS; 2018-12-18)
PROC: 3E033VJ Introduction of Other Hormone into Peripheral Vein, Percutaneous Approach (ICD-10-PCS; 2018-12-18)
PROC: 10E0XZZ Delivery of Products of Conception, External Approach (ICD-10-PCS; principal; 2018-12-19)
DX: O12.14 Gestational proteinuria, complicating childbirth (principal); O70.0 First degree perineal laceration during delivery; O99.02 Anemia complicating childbirth; D64.9 Anemia, unspecified; Z3A.39 39 weeks gestation of pregnancy; Z37.0 Single live birth
CPT/HCPCS: J2370; J2540; J2590; J3010; J3105